=== PATIENT | male | born 1955 | race Caucasian/White ===

== ENCOUNTER 2016-06-28 08:59 | Emergency (ER) | payer BC, OTHER ==
[~2016-06-28] VITALS: Ht 170.2 cm; Wt 124.5 kg
[~2016-06-28 08:59] MED LIST: ASPIRIN E.C. 8181 MG PO; ATIVAN 0.50.5 MG/TAB PO; CALCIUM W/VITAM1 TAB PO; CIPRO 500MG TA500 MG PO; FLEXERIL; FLOMAX 0.40.4 MG/CAP PO; INDOCIN50 MG PO; LEXAPRO 10MG10 MG PO; LISINOPRIL10 MG PO; NEXIUM40 MG PO; NORCO 325 MG-51 TAB PO; NORCO 325 MG-7.1 TAB PO; NULEV0.125 M1 PO; PERCOCET 325 MG1 TA2 PO; PHENERGAN 25 TA25 MG PO; PHENERGAN25 MG RC; TOPAMAX50 MG PO; ZOFRAN 4MG T4 MG/TAB PO; ZOLOFT 25MG25 MG PO
[2016-06-28 09:03] VITALS: BP 159/79; PULSE 77; TEMP 98
[2016-06-28] MEDS ORDERED: MINIPRESS 1M1 MG/CAP PO (09:16)
[2016-06-28] MEDS ORDERED: EFFEXOR-XR150 MG PO (09:17)
[2016-06-28 09:44] LABS: INFLUENZA B NEGATIVE
[2016-06-28] MEDS ORDERED: NORCO 325 MG-51 TAB PO (10:39)
[2016-06-28] MEDS ORDERED: ZITHROMAX 250M250 MG PO (10:39)
== END 2016-06-28 10:48 | disposition home or self-care (01) ==
LOC: COL.ER 08:59
PROVIDERS: Emergency Medicine
DX: J06.9 Acute upper respiratory infection, unspecified (principal); K11.20 Sialoadenitis, unspecified; F17.210 Nicotine dependence, cigarettes, uncomplicated; I10 Essential (primary) hypertension

== ENCOUNTER → 2017-06-03 | Outpatient (CLI) | payer BC, OTHER ==
[~2017-06-03] MED LIST changes: +EFFEXOR-XR150 MG PO; +MINIPRESS 1M1 MG/CAP PO; +ZITHROMAX 250M250 MG PO
== END ==
LOC: ZCOL.LAB 16:06
DX: L02.419 Cutaneous abscess of limb, unspecified (principal)

== ENCOUNTER 2017-07-21 15:02 | Observation (INO) | payer BC, OTHER ==
[~2017-07-21] VITALS: Ht 170.3 cm; Wt 118.5 kg
[2017-07-21 15:24] LABS: BASO # 0.1 (0.0-0.2); BASO % 0.5 % (0.0-2.0); EOS # 0.2 (0.0-0.7); EOS % 1.4 % (0-4.0); GRAN # 12.9 (1.4-6.5); GRAN % 74.3 % (42.2-75.2); HEMATOCRIT 49.9 % (42.0-52.0); HEMOGLOBIN 17.4 g/dl (13.5-18.0); LYMPH # 2.7 (1.2-3.4); LYMPH % 15.5 % (20.0-51.0); MEAN CELL VOLUME 89 fl (80.0-100.0); MEAN CORPUSCULAR HEMOGLOBIN 31 pg (27.0-31.0); MEAN CORPUSCULAR HGB CONC 35 g/dl (33.0-37.0); MEAN PLATELET VOLUME 10.2 fl (7.4-10.4); MONO # 1.3 (0.1-0.6); MONO % 7.6 % (1.7-9.3); PLATELET COUNT 305 K/mm3 (130-400); RED BLOOD COUNT 5.61 M/mm3 (4.20-5.60); REDCELL DISTRIBUTION WIDTH-CV 12.4 % (11.5-14.5)
[2017-07-21] MEDS ORDERED: EFFEXOR-XR150 MG PO (15:30)
[2017-07-21 15:36] LABS: ALANINE AMINOTRANSFERASE 89 U/L (21-72); ALBUMIN 4.9 gm/dL (3.5-5.0); ALKALINE PHOSPHATASE 95 U/L (50-136); ANION GAP 12 mmol/L (7-16); AST,SGOT 53 U/L (15-37); BILIRUBIN,TOTAL 0.6 mg/dL (0.0-1.0); BLOOD UREA NITROGEN 19 mg/dL (9-20); CALCIUM 9.7 mg/dL (8.4-10.2); CARBON DIOXIDE 26 mmol/L (22-30); CHLORIDE 99 mmol/L (98-107); GLUCOSE 195 mg/dL (74-106); MAGNESIUM 2.1 mg/dL (1.6-2.3); POTASSIUM 4.4 mmol/L (3.4-5.0); SODIUM 137 mmol/L (137-145); TOTAL PROTEIN 8.1 gm/dL (6.4-8.2)
[2017-07-21 15:48] LABS: TROPONIN-I < 0.012 ng/mL (0.000-0.034)
[2017-07-21 15:49] LABS: PROTHROMBIN TIME 12.1 SECONDS (9.7-12.8)
[2017-07-21 15:52] LABS: PARTIAL THROMBOPLASTIN TIME 32.7 SECONDS (26.0-37.0)
[2017-07-21] MEDS ORDERED: MINIPRESS 5M5 MG/CAP PO (18:16)
[2017-07-21 18:30] VITALS: BP 129/65; PULSE 70; TEMP 98.1
[2017-07-21 20:52] VITALS: BP 126/65; PULSE 55; TEMP 98.8
[2017-07-22] VITALS (11 sets, daily range): BP systolic 121–156; BP diastolic 57–86; PULSE 59–91; TEMP 97.3–97.7
[2017-07-22 07:28] LABS: COLLECTION METHOD CLEAN CATCH
[2017-07-22 07:36] LABS: MUCOUS Present /lpf; PH 5 (5-8); SQUAMOUS EPITHELIAL None Seen /hpf; URINE APPEARANCE Clear; URINE BACTERIA None Seen /hpf; URINE BILIRUBIN Negative (NEGATIVE); URINE BLOOD Negative (NEGATIVE); URINE COLOR Yellow; URINE GLUCOSE Negative (NEGATIVE); URINE KETONE Negative (NEGATIVE); URINE LEUKOCYTE ESTERASE Negative (NEGATIVE); URINE NITRATE Negative (NEGATIVE); URINE PROTEIN(semi-quant) Negative (NEGATIVE); URINE RBC 0-2 /hpf; URINE UROBILINOGEN Negative (NEGATIVE)
[2017-07-22 07:55] LABS: BASO # 0.1 (0.0-0.2); BASO % 0.6 % (0.0-2.0); EOS # 0.2 (0.0-0.7); EOS % 1.4 % (0-4.0); GRAN # 10.6 (1.4-6.5); GRAN % 68.3 % (42.2-75.2); HEMATOCRIT 51.8 % (42.0-52.0); HEMOGLOBIN 17.3 g/dl (13.5-18.0); LYMPH # 3.4 (1.2-3.4); LYMPH % 21.6 % (20.0-51.0); MEAN CELL VOLUME 92 fl (80.0-100.0); MEAN CORPUSCULAR HEMOGLOBIN 31 pg (27.0-31.0); MEAN CORPUSCULAR HGB CONC 33 g/dl (33.0-37.0); MEAN PLATELET VOLUME 10.8 fl (7.4-10.4); MONO # 1.1 (0.1-0.6); MONO % 7.2 % (1.7-9.3); PLATELET COUNT 304 K/mm3 (130-400); RED BLOOD COUNT 5.64 M/mm3 (4.20-5.60); REDCELL DISTRIBUTION WIDTH-CV 12.8 % (11.5-14.5)
[2017-07-22 08:01] LABS: CALCIUM 9.5 mg/dL (8.4-10.2); CHOLESTEROL RISK RATIO 3.5; CREATININE, serum 0.94 mg/dL (0.66-1.25); POTASSIUM 4.2 mmol/L (3.4-5.0)
[2017-07-23] VITALS (7 sets, daily range): BP systolic 82–137; BP diastolic 40–65; PULSE 63–91; TEMP 97.4–98.7
[2017-07-23 06:14] LABS: BASO # 0.1 (0.0-0.2); BASO % 0.4 % (0.0-2.0); EOS # 0.2 (0.0-0.7); EOS % 1.6 % (0-4.0); GRAN # 8.1 (1.4-6.5); GRAN % 70.2 % (42.2-75.2); HEMOGLOBIN 15.7 g/dl (13.5-18.0); LYMPH # 2.3 (1.2-3.4); LYMPH % 19.6 % (20.0-51.0); MEAN CELL VOLUME 89 fl (80.0-100.0); MEAN CORPUSCULAR HEMOGLOBIN 31 pg (27.0-31.0); MEAN CORPUSCULAR HGB CONC 35 g/dl (33.0-37.0); MEAN PLATELET VOLUME 10.4 fl (7.4-10.4); MONO # 0.9 (0.1-0.6); MONO % 7.7 % (1.7-9.3); PLATELET COUNT 210 K/mm3 (130-400); RED BLOOD COUNT 5.06 M/mm3 (4.20-5.60); REDCELL DISTRIBUTION WIDTH-CV 12.3 % (11.5-14.5)
[2017-07-23 06:27] LABS: CALCIUM 8.9 mg/dL (8.4-10.2); CREATININE, serum 0.87 mg/dL (0.66-1.25); POTASSIUM 4.1 mmol/L (3.4-5.0)
[2017-07-23] MEDS ORDERED: MINIPRESS 5M5 MG/CAP PO ×2 (11:03→15:41)
[2017-07-23] MEDS ORDERED: TOPROL XL 25MG25 MG PO (11:05)
[2017-07-23] MEDS ORDERED: GLUCOPHAGE500 MG/TAB PO (13:07)
== END 2017-07-23 15:30 | disposition home or self-care (01) ==
LOC: COL.ER 15:02 → MEDICAL 16:47
PROVIDERS: Emergency Medicine; Nurse Practitioner; Physician Assistant
DX: R07.89 Other chest pain (principal); R00.2 Palpitations; D72.829 Elevated white blood cell count, unspecified; R74.0 Nonspecific elevation of levels of transaminase and lactic acid dehydrogenase [LDH]; I10 Essential (primary) hypertension; E11.9 Type 2 diabetes mellitus without complications; F43.10 Post-traumatic stress disorder, unspecified; G47.33 Obstructive sleep apnea (adult) (pediatric); E66.9 Obesity, unspecified; I25.2 Old myocardial infarction; Z88.0 Allergy status to penicillin; Z79.4 Long term (current) use of insulin; Z98.52 Vasectomy status; Z87.891 Personal history of nicotine dependence
CPT/HCPCS: A9502; G0378; J1650; J1815; J2785; J7030

== ENCOUNTER → 2017-07-26 | Outpatient (CLI) | payer BC, OTHER ==
[~2017-07-26] MED LIST changes: +GLUCOPHAGE500 MG/TAB PO; +MINIPRESS 5M5 MG/CAP PO; +TOPROL XL 25MG25 MG PO
[2017-07-26 08:23] LABS: ALBUMIN 4.3 gm/dL (3.5-5.0); BILIRUBIN,TOTAL 0.6 mg/dL (0.0-1.0); CALCIUM 9.1 mg/dL (8.4-10.2); CREATININE, serum 0.94 mg/dL (0.66-1.25); POTASSIUM 4.4 mmol/L (3.4-5.0); TOTAL PROTEIN 7.2 gm/dL (6.4-8.2)
== END ==
LOC: COL.LAB 07:49
PROVIDERS: Physician Assistant
DX: E11.9 Type 2 diabetes mellitus without complications (principal)

== ENCOUNTER 2017-09-30 08:30 | Day surgery (SDC) | payer BC, OTHER ==
[2017-09-30] VITALS (423 sets, daily range): BP systolic 116–155; BP diastolic 65–85; PULSE 55–75; TEMP 79.6–98.4; O2SAT 88–100
[~2017-09-30] VITALS: Ht 170.5 cm; Wt 123.6 kg
[~2017-09-30 08:30] MED LIST changes: -LISINOPRIL10 MG PO; +NEXIUM 40MG40 MG PO; -NEXIUM40 MG PO; +ZESTRIL 10MG10 MG PO
[2017-09-30 08:52] LABS: HEMATOCRIT 42.7 % (42.0-52.0); HEMOGLOBIN 14.8 g/dl (13.5-18.0); MEAN CELL VOLUME 90 fl (80.0-100.0); MEAN CORPUSCULAR HEMOGLOBIN 31 pg (27.0-31.0); MEAN CORPUSCULAR HGB CONC 35 g/dl (33.0-37.0); MEAN PLATELET VOLUME 10.2 fl (7.4-10.4); PLATELET COUNT 206 K/mm3 (130-400); RED BLOOD COUNT 4.77 M/mm3 (4.20-5.60); REDCELL DISTRIBUTION WIDTH-CV 12.1 % (11.5-14.5)
[2017-09-30 09:02] LABS: INR 1.1 (0.8-3.0)
[2017-09-30 09:04] LABS: CREATININE, serum 0.8 mg/dL (0.66-1.25); POTASSIUM 4.5 mmol/L (3.4-5.0)
[2017-09-30] MEDS ORDERED: VITAMIN D 1001000 IU PO (09:40)
[2017-09-30] MEDS ORDERED: ATIVAN 1MG T1 MG/TAB PO (09:41)
[2017-10-01] VITALS (478 sets, daily range): BP systolic 105–130; BP diastolic 75–84; PULSE 63–115; TEMP 97–98.4; O2SAT 86–100
[2017-10-01 03:50] LABS: BASO # 0.1 (0.0-0.2); BASO % 0.7 % (0.0-2.0); EOS # 0.3 (0.0-0.7); EOS % 2.9 % (0-4.0); GRAN # 5.8 (1.4-6.5); GRAN % 66.4 % (42.2-75.2); HEMATOCRIT 40.9 % (42.0-52.0); HEMOGLOBIN 14.3 g/dl (13.5-18.0); LYMPH % 22.5 % (20.0-51.0); MEAN CELL VOLUME 88 fl (80.0-100.0); MEAN CORPUSCULAR HEMOGLOBIN 31 pg (27.0-31.0); MEAN CORPUSCULAR HGB CONC 35 g/dl (33.0-37.0); MEAN PLATELET VOLUME 10.2 fl (7.4-10.4); MONO # 0.6 (0.1-0.6); MONO % 7.2 % (1.7-9.3); PLATELET COUNT 188 K/mm3 (130-400); RED BLOOD COUNT 4.63 M/mm3 (4.20-5.60); REDCELL DISTRIBUTION WIDTH-CV 12.1 % (11.5-14.5)
[2017-10-01 04:00] LABS: CALCIUM 8.7 mg/dL (8.4-10.2); CREATININE, serum 0.75 mg/dL (0.66-1.25)
[2017-10-01] MEDS ORDERED: BRILINTA90 MG PO (12:15)
[2017-10-01] MEDS ORDERED: LIPITOR 80MG80 MG PO (12:15)
[2017-10-01] MEDS ORDERED: TOPROL XL 50MG50 MG PO (12:16)
[2017-10-01] MEDS ORDERED: ZESTRIL 10MG10 MG PO (12:16)
[2017-10-01] MEDS ORDERED: ASPIRIN E.C. 8181 MG PO (12:17)
[2017-10-01] MEDS ORDERED: GLUCOPHAGE500 MG/TAB PO (12:18)
== END 2017-10-01 12:59 | disposition home or self-care (01) ==
LOC: COL.CAR 08:30 → ICU 11:45 → COL.CAR 10-01 12:59
PROVIDERS: Internal Medicine Cardiovascular Disease; Nurse Practitioner
DX: I25.10 Atherosclerotic heart disease of native coronary artery without angina pectoris (principal); I42.9 Cardiomyopathy, unspecified; I49.3 Ventricular premature depolarization; I10 Essential (primary) hypertension; E66.9 Obesity, unspecified; E11.9 Type 2 diabetes mellitus without complications; K21.9 Gastro-esophageal reflux disease without esophagitis; F43.10 Post-traumatic stress disorder, unspecified; G47.33 Obstructive sleep apnea (adult) (pediatric); F41.9 Anxiety disorder, unspecified; R51 Headache; Z88.0 Allergy status to penicillin; Z82.49 Family history of ischemic heart disease and other diseases of the circulatory system; Z85.828 Personal history of other malignant neoplasm of skin; Z80.3 Family history of malignant neoplasm of breast
CPT/HCPCS: OP; C1760; C1769; C1874; C1887; C1894; C9600; J0153; J0583; J2250; J3010; Q9967

== ENCOUNTER → 2018-03-02 | Outpatient (CLI) | payer BC, OTHER ==
[~2018-03-02] MED LIST changes: +ATIVAN 1MG T1 MG/TAB PO; +BRILINTA90 MG PO; +LIPITOR 80MG80 MG PO; +TOPROL XL 50MG50 MG PO; +VITAMIN D 1001000 IU PO
== END ==
LOC: COL.VAS 10:00
DX: I07.1 Rheumatic tricuspid insufficiency (principal)

== ENCOUNTER → 2018-03-07 | Outpatient (CLI) | payer BC, OTHER | LOC: COL.RAD 09:53 | DX: R06.02 Shortness of breath (principal) ==

== ENCOUNTER → 2018-07-05 | Outpatient (CLI) | payer BC, OTHER | LOC: COL.CARD 09:26 | DX: R40.4 Transient alteration of awareness (principal); R44.3 Hallucinations, unspecified ==

== ENCOUNTER 2018-07-30 20:15 | Emergency (ER) | payer BC, OTHER ==
[~2018-07-30] VITALS: Ht 170.2 cm; Wt 121.0 kg
[2018-07-30 20:29] VITALS: BP 107/68; TEMP 98.4
[2018-07-30 22:47] LABS: COLLECTION METHOD CLEAN CATCH
[2018-07-30 22:51] LABS: BASO # 0.1 (0.0-0.2); BASO % 0.7 % (0.0-2.0); EOS # 0.4 (0.0-0.7); EOS % 3.2 % (0-4.0); GRAN # 7.5 (1.4-6.5); HEMATOCRIT 44.1 % (42.0-52.0); HEMOGLOBIN 15.2 g/dl (13.5-18.0); LYMPH # 2.8 (1.2-3.4); MEAN CELL VOLUME 89 fl (80.0-100.0); MEAN CORPUSCULAR HEMOGLOBIN 31 pg (27.0-31.0); MEAN CORPUSCULAR HGB CONC 35 g/dl (33.0-37.0); MEAN PLATELET VOLUME 10.2 fl (7.4-10.4); MONO # 0.9 (0.1-0.6); MONO % 7.6 % (1.7-9.3); PLATELET COUNT 252 K/mm3 (130-400); RED BLOOD COUNT 4.96 M/mm3 (4.20-5.60); REDCELL DISTRIBUTION WIDTH-CV 12.4 % (11.5-14.5)
[2018-07-30 23:03] LABS: MUCOUS Present /lpf; PH 5 (5-8); SQUAMOUS EPITHELIAL 0-2 /hpf; URINE APPEARANCE Clear; URINE BACTERIA None Seen /hpf; URINE BILIRUBIN Negative (NEGATIVE); URINE BLOOD 3+ (NEGATIVE); URINE COLOR Yellow; URINE GLUCOSE Negative (NEGATIVE); URINE KETONE Negative (NEGATIVE); URINE LEUKOCYTE ESTERASE Negative (NEGATIVE); URINE NITRATE Negative (NEGATIVE); URINE PROTEIN(semi-quant) Negative (NEGATIVE); URINE RBC >50 /hpf; URINE UROBILINOGEN >=4.0 mg/dL (NEGATIVE)
[2018-07-30 23:04] LABS: ALBUMIN 4.3 gm/dL (3.5-5.0); BILIRUBIN,TOTAL 0.5 mg/dL (0.0-1.0); CALCIUM 9.5 mg/dL (8.4-10.2); CREATININE, serum 0.77 mg/dL (0.66-1.25); POTASSIUM 4.3 mmol/L (3.4-5.0); TOTAL PROTEIN 7.4 gm/dL (6.4-8.2)
[2018-07-31] MEDS ORDERED: FLOMAX 0.40.4 MG/CAP PO (03:37)
[2018-07-31] MEDS ORDERED: PERCOCET 325 MG1 TA2 PO (03:37)
[2018-07-31 04:02] VITALS: PULSE 65
== END 2018-07-31 04:13 | disposition home or self-care (01) ==
LOC: COL.ER 20:15
PROVIDERS: Emergency Medicine
DX: N20.2 Calculus of kidney with calculus of ureter (principal); I25.10 Atherosclerotic heart disease of native coronary artery without angina pectoris; E66.9 Obesity, unspecified; Z87.442 Personal history of urinary calculi; Z87.19 Personal history of other diseases of the digestive system; Z79.82 Long term (current) use of aspirin; Z79.84 Long term (current) use of oral hypoglycemic drugs; Z87.891 Personal history of nicotine dependence; Z95.5 Presence of coronary angioplasty implant and graft; Z88.0 Allergy status to penicillin
CPT/HCPCS: J2270; J2405; J7030; Q9967

== ENCOUNTER 2018-08-01 23:11 | Emergency (ER) | payer BC, OTHER ==
[~2018-08-01] VITALS: Ht 170.2 cm; Wt 121.0 kg
[2018-08-01 23:15] VITALS: TEMP 97.9
[2018-08-02 00:22] LABS: COLLECTION METHOD CLEAN CATCH
[2018-08-02 00:24] LABS: BASO # 0.1 (0.0-0.2); BASO % 0.5 % (0.0-2.0); EOS # 0.2 (0.0-0.7); EOS % 1.5 % (0-4.0); GRAN # 12.4 (1.4-6.5); GRAN % 81.8 % (42.2-75.2); HEMATOCRIT 43.4 % (42.0-52.0); HEMOGLOBIN 14.7 g/dl (13.5-18.0); LYMPH # 1.5 (1.2-3.4); LYMPH % 9.7 % (20.0-51.0); MEAN CELL VOLUME 90 fl (80.0-100.0); MEAN CORPUSCULAR HEMOGLOBIN 31 pg (27.0-31.0); MEAN CORPUSCULAR HGB CONC 34 g/dl (33.0-37.0); MONO # 0.9 (0.1-0.6); PLATELET COUNT 211 K/mm3 (130-400); RED BLOOD COUNT 4.82 M/mm3 (4.20-5.60); REDCELL DISTRIBUTION WIDTH-CV 12.1 % (11.5-14.5)
[2018-08-02 00:35] LABS: ALBUMIN 4.4 gm/dL (3.5-5.0); BILIRUBIN,TOTAL 0.3 mg/dL (0.0-1.0); CALCIUM 9.4 mg/dL (8.4-10.2); CREATININE, serum 0.89 mg/dL (0.66-1.25); POTASSIUM 4.5 mmol/L (3.4-5.0); TOTAL PROTEIN 7.7 gm/dL (6.4-8.2)
[2018-08-02 00:47] LABS: HYALINE CAST >12 /lpf; MUCOUS Present /lpf; PH 5 (5-8); SQUAMOUS EPITHELIAL 0-2 /hpf; URINE APPEARANCE Cloudy; URINE BACTERIA Rare /hpf; URINE BILIRUBIN Negative (NEGATIVE); URINE BLOOD 3+ (NEGATIVE); URINE CALCIUM OXALATE CRYSTAL Present /hpf; URINE COLOR Yellow; URINE GLUCOSE Negative (NEGATIVE); URINE KETONE Negative (NEGATIVE); URINE LEUKOCYTE ESTERASE Negative (NEGATIVE); URINE NITRATE Negative (NEGATIVE); URINE PROTEIN(semi-quant) 1+ (NEGATIVE); URINE RBC >50 /hpf
[2018-08-02] MEDS ORDERED: PERIACTIN 4MG TA4 MG PO (00:48)
[2018-08-02] MEDS ORDERED: NEURONTIN100 MG/CAP PO (00:49)
[2018-08-02] MEDS ORDERED: IMDUR 30MG30 MG/TAB PO (00:56)
[2018-08-02] MEDS ORDERED: TOPROL XL 50MG50 MG PO (00:58)
[2018-08-02] MEDS ORDERED: NITROSTAT0.4 MG/TAB SL (00:59)
[2018-08-02] MEDS ORDERED: THEO-24 30300 MG/CAP PO (01:00)
[2018-08-02] MEDS ORDERED: ZOFRAN 4MG T4 MG/TAB PO (02:10)
[2018-08-02] MEDS ORDERED: KENALOG-4040 MG/VIAL IM (02:10)
[2018-08-02] MEDS ORDERED: OMNICEF 300MG300 MG PO (03:09)
[2018-08-02 03:50] VITALS: BP 103/84; PULSE 67
== END 2018-08-02 03:50 | disposition home or self-care (01) ==
LOC: COL.ER 23:11
PROVIDERS: Emergency Medicine
DX: R39.89 Other symptoms and signs involving the genitourinary system (principal); I10 Essential (primary) hypertension; G47.33 Obstructive sleep apnea (adult) (pediatric); F43.10 Post-traumatic stress disorder, unspecified; Z79.82 Long term (current) use of aspirin; Z79.4 Long term (current) use of insulin; Z79.51 Long term (current) use of inhaled steroids; Z98.890 Other specified postprocedural states; Z90.89 Acquired absence of other organs
CPT/HCPCS: A4216; J0696; J1885; J2270; J2405; J7030; Q9967

== ENCOUNTER 2018-08-05 10:06 | Day surgery (SDC) | payer BC, OTHER ==
[~2018-08-05] VITALS: Ht 170.2 cm; Wt 120.6 kg
[~2018-08-05 10:06] MED LIST changes: +IMDUR 30MG30 MG/TAB PO; +KENALOG-4040 MG/VIAL IM; +NEURONTIN100 MG/CAP PO; +NITROSTAT0.4 MG/TAB SL; +OMNICEF 300MG300 MG PO; +PERIACTIN 4MG TA4 MG PO; +THEO-24 30300 MG/CAP PO
[2018-08-05 10:45] VITALS: BP 118/61; PULSE 62; TEMP 98.2
[2018-08-05 13:30] VITALS: BP 122/72; PULSE 55; TEMP 97.4
--- NOTE | 2018-08-05 13:30 | NUR ---
TO RM 8 PER CART FROM PACU. ALERT ORIENTED X3, TALKING TO STAFF AND HIS . DENIES PAIN OR DISCOMFORT, DENIES NAUSEA OR VOMITING.
[2018-08-05 13:45] VITALS: BP 121/76; PULSE 53
--- NOTE | 2018-08-05 13:45 | NUR ---
RECEIVED WATER AND MUFFIN.
[2018-08-05 14:00] VITALS: BP 126/75; PULSE 51
--- NOTE | 2018-08-05 14:00 | NUR ---
ATE 100% AND TOLERATED WELL. RECEIVED MARICHUY. PUDDING. SITTING AT BEDSIDE.
--- NOTE | 2018-08-05 14:10 | NUR ---
UP AMBULATED TO BATHROOM AND VOIDED. PATIENT STATED HE SEEN BLOOD NOTED IN URINE.
--- NOTE | 2018-08-05 14:15 | NUR ---
RECEIVED DISCHARGE INSTRUCTIONS AND VERBALIZED UNDERSTANDING. DISCONTINUED IV AND INT-CATHETER INTACT.
--- NOTE | 2018-08-05 14:20 | NUR ---
DISCHARGED PER WC BY NURSING STAFF TO PRIVATE CAR IN CARE OF - ANNIKA
== END 2018-08-05 14:20 | disposition home or self-care (01) ==
LOC: SDCO 10:06
DX: R10.9 Unspecified abdominal pain (principal); R31.9 Hematuria, unspecified; R39.12 Poor urinary stream; I10 Essential (primary) hypertension; E11.40 Type 2 diabetes mellitus with diabetic neuropathy, unspecified; Z79.84 Long term (current) use of oral hypoglycemic drugs; Z87.442 Personal history of urinary calculi; Z95.5 Presence of coronary angioplasty implant and graft; R20.2 Paresthesia of skin; F43.10 Post-traumatic stress disorder, unspecified; Z80.42 Family history of malignant neoplasm of prostate; Z79.899 Other long term (current) drug therapy; Z79.82 Long term (current) use of aspirin; I25.10 Atherosclerotic heart disease of native coronary artery without angina pectoris; Z82.49 Family history of ischemic heart disease and other diseases of the circulatory system; I07.1 Rheumatic tricuspid insufficiency; G47.33 Obstructive sleep apnea (adult) (pediatric); Z85.828 Personal history of other malignant neoplasm of skin; F41.9 Anxiety disorder, unspecified; K21.9 Gastro-esophageal reflux disease without esophagitis; K44.9 Diaphragmatic hernia without obstruction or gangrene; J98.4 Other disorders of lung; K76.0 Fatty (change of) liver, not elsewhere classified; Z87.891 Personal history of nicotine dependence; Z88.0 Allergy status to penicillin
CPT/HCPCS: C1769; J0690; J2250; J2405; J2704; J3010; J7030; Q9967

== ENCOUNTER 2018-09-26 12:13 | Emergency (ER) | payer BC, OTHER ==
[~2018-09-26] VITALS: Ht 170.2 cm; Wt 121.9 kg
[2018-09-26 12:18] VITALS: TEMP 97
[2018-09-26 12:57] LABS: BASO % 0.5 % (0.0-2.0); EOS # 0.3 (0.0-0.7); EOS % 4.1 % (0-4.0); GRAN # 5.5 (1.4-6.5); GRAN % 65.4 % (42.2-75.2); HEMATOCRIT 40.7 % (42.0-52.0); HEMOGLOBIN 13.8 g/dl (13.5-18.0); LYMPH # 1.9 (1.2-3.4); LYMPH % 22.3 % (20.0-51.0); MEAN CELL VOLUME 89 fl (80.0-100.0); MEAN CORPUSCULAR HEMOGLOBIN 30 pg (27.0-31.0); MEAN CORPUSCULAR HGB CONC 34 g/dl (33.0-37.0); MEAN PLATELET VOLUME 10.2 fl (7.4-10.4); MONO # 0.6 (0.1-0.6); MONO % 7.2 % (1.7-9.3); PLATELET COUNT 201 K/mm3 (130-400); RED BLOOD COUNT 4.59 M/mm3 (4.20-5.60); REDCELL DISTRIBUTION WIDTH-CV 12.4 % (11.5-14.5)
[2018-09-26 12:59] LABS: INR 1.2 (0.8-3.0); PROTHROMBIN TIME 13.2 SECONDS (9.7-12.8)
[2018-09-26 13:02] LABS: ALANINE AMINOTRANSFERASE 16 U/L (21-72); ALBUMIN 3.9 gm/dL (3.5-5.0); ALKALINE PHOSPHATASE 82 U/L (50-136); ANION GAP 13 mmol/L (7-16); AST,SGOT 38 U/L (15-37); BILIRUBIN,TOTAL 0.5 mg/dL (0.0-1.0); BLOOD UREA NITROGEN 11 mg/dL (9-20); CALCIUM 9.4 mg/dL (8.4-10.2); CARBON DIOXIDE 23 mmol/L (22-30); CHLORIDE 107 mmol/L (98-107); CREATININE, serum 0.85 (0.66-1.25); GLUCOSE 236 mg/dL (74-106); LIPASE 113 U/L (23-300); POTASSIUM 3.6 mmol/L (3.4-5.0); SODIUM 143 mmol/L (137-145); TOTAL PROTEIN 6.9 gm/dL (6.4-8.2)
[2018-09-26 13:14] LABS: TROPONIN-I < 0.012 ng/mL (0.000-0.035)
[2018-09-26 17:10] VITALS: BP 92/60; PULSE 73
== END 2018-09-26 17:18 | disposition home or self-care (01) ==
LOC: COL.ER 12:13
PROVIDERS: Emergency Medicine
DX: R07.89 Other chest pain (principal); I25.10 Atherosclerotic heart disease of native coronary artery without angina pectoris; Z95.5 Presence of coronary angioplasty implant and graft
CPT/HCPCS: J1885; J2060; J2270; J2405; J3010; J7030; Q9967

== ENCOUNTER 2018-11-18 06:59 | Day surgery (SDC) | payer BC, OTHER ==
[~2018-11-18] VITALS: Ht 170.2 cm; Wt 120.8 kg
[2018-11-18] VITALS (12 sets, daily range): BP systolic 96–122; BP diastolic 64–77; PULSE 54–81; TEMP 97.6
[2018-11-18 07:43] LABS: HEMATOCRIT 41.4 % (42.0-52.0); HEMOGLOBIN 13.8 g/dl (13.5-18.0); MEAN CELL VOLUME 91 fl (80.0-100.0); MEAN CORPUSCULAR HEMOGLOBIN 30 pg (27.0-31.0); MEAN CORPUSCULAR HGB CONC 33 g/dl (33.0-37.0); MEAN PLATELET VOLUME 10.3 fl (7.4-10.4); PLATELET COUNT 189 K/mm3 (130-400); RED BLOOD COUNT 4.57 M/mm3 (4.20-5.60); REDCELL DISTRIBUTION WIDTH-CV 12.7 % (11.5-14.5)
[2018-11-18 07:54] LABS: CALCIUM 8.9 mg/dL (8.4-10.2); CREATININE, serum 0.98 (0.66-1.25); POTASSIUM 4.3 mmol/L (3.4-5.0)
[2018-11-18 08:02] LABS: INR 1.1 (0.8-3.0); PROTHROMBIN TIME 12.3 SECONDS (9.7-12.8)
[2018-11-18] MEDS ORDERED: ASPIRIN E.C. 8181 MG PO (08:35)
[2018-11-18] MEDS ORDERED: LIPITOR 80MG80 MG PO (08:36)
[2018-11-18] MEDS ORDERED: BRILINTA90 MG PO (08:42)
[2018-11-18] MEDS ORDERED: MINIPRESS 5M5 MG/CAP PO (08:43)
[2018-11-18] MEDS ORDERED: TOPROL XL 50MG50 MG PO (08:45)
[2018-11-18] MEDS ORDERED: GLUCOPHAGE500 MG/TAB PO (08:46)
[2018-11-18] MEDS ORDERED: PROAIR HFA0.09 MG/AC IH (08:48)
[2018-11-18] MEDS ORDERED: FLOMAX 0.40.4 MG/CAP PO (08:48)
[2018-11-18] MEDS ORDERED: ZESTRIL 10MG10 MG PO (08:50)
--- NOTE | 2018-11-18 08:57 | NUR ---
SEE MERGE REPORTS FOR MEDICATION ADMINISTRATION TIMES AND INTRA/POST PROCEDURE SEDATION ASSESSMENTS.
--- NOTE | 2018-11-18 13:25 | NUR ---
recieved report for Audra ABRAHAM, pt has no c/o, has old scan drainage on corner of 2x2, marked, pt used urinal earlier, call light in reach
--- NOTE | 2018-11-18 14:00 | NUR ---
pt sat on side of bed, tolerated well, walked in taylor and used b/r. site to groin remains the same, IV d'cd. Reviewed discharge inst. with pt on activity, precautions, appt made, and no new meds ordered, pt with verbal understanding. pt up in room dressed, waits for /ride
--- NOTE | 2018-11-18 14:45 | NUR ---
pt discharged via w/c to car with
== END 2018-11-18 14:45 | disposition home or self-care (01) ==
LOC: COL.CAR 06:59
PROVIDERS: Internal Medicine Cardiovascular Disease
DX: I25.10 Atherosclerotic heart disease of native coronary artery without angina pectoris (principal); I27.20 Pulmonary hypertension, unspecified; E11.9 Type 2 diabetes mellitus without complications; E66.9 Obesity, unspecified; K21.9 Gastro-esophageal reflux disease without esophagitis; I49.3 Ventricular premature depolarization; F43.10 Post-traumatic stress disorder, unspecified; G47.33 Obstructive sleep apnea (adult) (pediatric); J98.4 Other disorders of lung; F41.9 Anxiety disorder, unspecified; R51 Headache; Z82.49 Family history of ischemic heart disease and other diseases of the circulatory system; Z85.828 Personal history of other malignant neoplasm of skin; I10 Essential (primary) hypertension; Z87.442 Personal history of urinary calculi; D72.829 Elevated white blood cell count, unspecified; E29.1 Testicular hypofunction; Z79.82 Long term (current) use of aspirin; Z79.84 Long term (current) use of oral hypoglycemic drugs; Z87.891 Personal history of nicotine dependence; Z80.9 Family history of malignant neoplasm, unspecified; Z80.3 Family history of malignant neoplasm of breast; Z88.0 Allergy status to penicillin
CPT/HCPCS: C1760; C1769; C1894; J1644; J2250; J3010; Q9967

== ENCOUNTER → 2018-12-13 | Outpatient (CLI) | payer BC, OTHER ==
[~2018-12-13] MED LIST changes: +PROAIR HFA0.09 MG/AC IH
== END ==
LOC: COL.RAD 08:09
DX: M51.16 Intervertebral disc disorders with radiculopathy, lumbar region (principal); M48.07 Spinal stenosis, lumbosacral region

== ENCOUNTER 2020-01-27 09:54 | Emergency (ER) | payer BC, OTHER ==
[~2020-01-27] VITALS: Ht 170.2 cm; Wt 120.7 kg
[2020-01-27 10:04] VITALS: BP 116/74; TEMP 97.7
[2020-01-27 12:44] VITALS: PULSE 88
[2020-01-27] MEDS ORDERED: CLEOCIN HCL300 MG PO (13:01)
== END 2020-01-27 12:44 | disposition home or self-care (01) ==
LOC: COL.ER 09:54
DX: M96.89 Other intraoperative and postprocedural complications and disorders of the musculoskeletal system (principal); Z88.0 Allergy status to penicillin; Z79.82 Long term (current) use of aspirin; Z79.84 Long term (current) use of oral hypoglycemic drugs

== ENCOUNTER 2020-02-22 20:55 | Observation (INO) | payer MEDICARE, BC, OTHER ==
[~2020-02-22] VITALS: Ht 170.2 cm; Wt 116.4 kg
[2020-02-22] VITALS (130 sets, daily range): BP systolic 146; BP diastolic 73; PULSE 70; TEMP 97.9; O2SAT 93–100
[~2020-02-22 20:55] MED LIST changes: +CLEOCIN HCL300 MG PO
--- NOTE | 2020-02-22 21:26 | NUR ---
Received report from LEIGH Lovelace.
[2020-02-22] MEDS ORDERED: THEO-DUR 3300 MG/TAB PO (21:29)
[2020-02-22] MEDS ORDERED: BEVESPI AEROS10.7 GM IH (21:29)
[2020-02-22] MEDS ORDERED: ATIVAN 1MG T1 MG/TAB PO (21:29)
--- NOTE | 2020-02-22 21:29 | NUR ---
Patient arrives to ICU room 1 via EMS stretcher. Patient ambulated with standby assistance to the ICU bed. Initial vitals within normal limits. Patient is A&Ox4, reporting 1/10 chest discomfort, related to episodes of PVCs; described as light chest pressure. Patient arrives with heparin infusing to a peripheral IV in the LAC at 1000 units/hour or 10 mL/hr. Shania notified of patient's arrival. Will continue to monitor.
[2020-02-22] MEDS ORDERED: MINIPRESS 1M1 MG/CAP PO (21:30)
[2020-02-22] MEDS ORDERED: LOPRESSOR 550 MG/TAB PO ×2 (22:05)
[2020-02-22] MEDS ORDERED: IMDUR 30MG30 MG/TAB PO (22:07)
[2020-02-22] MEDS ORDERED: GLUCOPHAGE500 MG/TAB PO (22:08)
[2020-02-22] MEDS ORDERED: KEPPRA250 MG PO (22:10)
[2020-02-22] MEDS ORDERED: AMITRIPTYLINE H25 M1 PO (22:11)
[2020-02-22] MEDS ORDERED: EFFEXOR-XR150 MG PO (22:12)
[2020-02-22] MEDS ORDERED: ABILIFY 10MG TA10 MG PO (22:14)
[2020-02-22] MEDS ORDERED: BASAGLAR K100 UNIT/1 SQ (22:15)
[2020-02-22 22:31] LABS: TROPONIN-I < 0.012 ng/mL (0.000-0.035)
[2020-02-22 22:44] LABS: MAGNESIUM 1.7 mg/dL (1.6-2.3)
[2020-02-22 23:16] LABS: TSH w REFLEX 1.52 uIU/mL (0.465-4.680)
[2020-02-22 23:23] LABS: INR 1.1 (0.8-3.0); PROTHROMBIN TIME 12.8 SECONDS (9.7-12.8)
[2020-02-22 23:30] LABS: PARTIAL THROMBOPLASTIN TIME 103.2 SECONDS (26.0-37.0)
--- NOTE | 2020-02-22 23:35 | NUR ---
Notified Shania of patient's PTT and HepXa. To continue heparin drip at the 1000 units/hour until HepXa draw at 0330. To dose according to low-dose protocol following that draw.
[2020-02-23] VITALS (1002 sets, daily range): BP systolic 87–1108; BP diastolic 48–84; PULSE 51–75; TEMP 97.5–98.2; O2SAT 88–100
[2020-02-23 03:41] LABS: BASO # 0.1 (0.0-0.2); BASO % 0.5 % (0.0-2.0); EOS # 0.5 (0.0-0.7); EOS % 4.9 % (0-4.0); GRAN # 6.2 (1.4-6.5); GRAN % 60.6 % (42.2-75.2); HEMATOCRIT 38.8 % (42.0-52.0); HEMOGLOBIN 12.9 g/dl (13.5-18.0); LYMPH # 2.7 (1.2-3.4); LYMPH % 26.7 % (20.0-51.0); MEAN CELL VOLUME 90 fl (80.0-100.0); MEAN CORPUSCULAR HEMOGLOBIN 30 pg (27.0-31.0); MEAN CORPUSCULAR HGB CONC 33 g/dl (33.0-37.0); MONO # 0.7 (0.1-0.6); MONO % 6.8 % (1.7-9.3); PLATELET COUNT 196 K/mm3 (130-400); REDCELL DISTRIBUTION WIDTH-CV 12.1 % (11.5-14.5)
[2020-02-23 03:53] LABS: ALANINE AMINOTRANSFERASE 23 U/L (4-49); ALBUMIN 3.6 gm/dL (3.5-5.0); ALKALINE PHOSPHATASE 93 U/L (50-136); ANION GAP 7 mmol/L (7-16); AST,SGOT 21 U/L (15-37); BILIRUBIN,TOTAL 0.4 mg/dL (0.0-1.0); BLOOD UREA NITROGEN 15 mg/dL (9-20); CALCIUM 8.7 mg/dL (8.4-10.2); CARBON DIOXIDE 28 mmol/L (22-30); CHLORIDE 103 mmol/L (98-107); CHOLESTEROL 80 mg/dL (120-200); CHOLESTEROL RISK RATIO 2.1; CREATININE, serum 0.82 (0.66-1.25); GLUCOSE 139 mg/dL (74-106); HDL CHOLESTEROL 38 mg/dL; LDL CHOLESTEROL 22 mg/dL; SODIUM 137 mmol/L (137-145); TOTAL PROTEIN 6.3 gm/dL (6.4-8.2); TRIGLYCERIDE 100 mg/dL
[2020-02-23 04:05] LABS: TROPONIN-I < 0.012 ng/mL (0.000-0.035)
--- NOTE | 2020-02-23 11:47 | NUR ---
SEE MI FOR ALL MEDICATION ADMIN TIMES, INTRA AND POST SEDATION ASSESSMENT
--- NOTE | 2020-02-23 15:06 | NUR ---
Bag Inspector met with patient to discuss discharge planning. Patient lives in [place] with his , Yashira (ph#[phone]) and sees Dr. Rm for primary care. Patient obtains medications from [facility] and does not use any DME. Patient states he has DPO[employer]-HC which designates his , Yashira. Patient is normally independent with ADLS and plans to return home upon discharge. No needs identified at this time.
[2020-02-23] MEDS ORDERED: LOVAZA1 GM PO (17:26)
[2020-02-23] MEDS ORDERED: LOPRESSOR 550 MG/TAB PO (17:26)
--- NOTE | 2020-02-23 18:16 | NUR ---
Discontinued patients Left AC peripheral IV d/t discharge. No redness, warmth or swelling noted. Catheter was intact. Removed at 1815 on 02/22. Patient tolerated well. Placed gauze and wrapped with coban over insertion site.
--- NOTE | 2020-02-23 19:00 | NUR ---
Discharge instructions reviewed. Education packet sent with patient. Patient accepting of education. Patient left facility with spouse.
== END 2020-02-23 19:15 | disposition home or self-care (01) ==
LOC: ICU 20:55
PROVIDERS: Nurse Practitioner Family; ADMIT Internal Medicine
DX: R07.89 Other chest pain (principal); I25.10 Atherosclerotic heart disease of native coronary artery without angina pectoris; Z95.5 Presence of coronary angioplasty implant and graft; I10 Essential (primary) hypertension; E78.5 Hyperlipidemia, unspecified; E11.42 Type 2 diabetes mellitus with diabetic polyneuropathy; G47.33 Obstructive sleep apnea (adult) (pediatric); J44.9 Chronic obstructive pulmonary disease, unspecified; F41.9 Anxiety disorder, unspecified; F32.9 Major depressive disorder, single episode, unspecified; F43.10 Post-traumatic stress disorder, unspecified; K21.9 Gastro-esophageal reflux disease without esophagitis; E66.9 Obesity, unspecified; Z88.0 Allergy status to penicillin; Z79.82 Long term (current) use of aspirin; Z79.84 Long term (current) use of oral hypoglycemic drugs; Z98.52 Vasectomy status; Z87.891 Personal history of nicotine dependence
CPT/HCPCS: G0378; G0379; J1644; J3010; J3475; J7030

== ENCOUNTER → 2020-07-23 | Outpatient (CLI) | payer MEDICARE, BC, OTHER ==
[~2020-07-23] MED LIST changes: +ABILIFY 10MG TA10 MG PO; +AMITRIPTYLINE H25 M1 PO; +BASAGLAR K100 UNIT/1 SQ; +BEVESPI AEROS10.7 GM IH; +DOXYCYCLINE 10100 MG PO; +KEPPRA250 MG PO; +LOPRESSOR 550 MG/TAB PO; +LOVAZA1 GM PO; +THEO-DUR 3300 MG/TAB PO
== END ==
LOC: COL.LAB 10:26
DX: Z01.812 Encounter for preprocedural laboratory examination (principal); Z20.822 Contact with and (suspected) exposure to COVID-19

== ENCOUNTER 2020-12-14 11:42 | Emergency (ER) | payer MEDICARE, BC, OTHER ==
[~2020-12-14] VITALS: Ht 170.2 cm; Wt 119.1 kg
[~2020-12-14 11:42] MED LIST changes: -DOXYCYCLINE 10100 MG PO
[2020-12-14 12:17] VITALS: TEMP 97.9
[2020-12-14 14:24] LABS: BASO # 0.1 (0.0-0.2); BASO % 0.9 % (0.0-2.0); EOS # 0.3 (0.0-0.7); EOS % 3.3 % (0-4.0); GRAN # 5.1 (1.4-6.5); HEMATOCRIT 43.7 % (42.0-52.0); HEMOGLOBIN 14.7 g/dl (13.5-18.0); LYMPH # 1.8 (1.2-3.4); LYMPH % 22.4 % (20.0-51.0); MEAN CELL VOLUME 90 fl (80.0-100.0); MEAN CORPUSCULAR HEMOGLOBIN 30 pg (27.0-31.0); MEAN CORPUSCULAR HGB CONC 34 g/dl (33.0-37.0); MEAN PLATELET VOLUME 10.2 fl (7.4-10.4); MONO # 0.7 (0.1-0.6); PLATELET COUNT 189 K/mm3 (130-400); RED BLOOD COUNT 4.86 M/mm3 (4.20-5.60); REDCELL DISTRIBUTION WIDTH-CV 12.5 % (11.5-14.5)
[2020-12-14 14:37] LABS: ALBUMIN 4.1 gm/dL (3.5-5.0); BILIRUBIN,TOTAL 0.4 mg/dL (0.0-1.0); C-REACTIVE PROTEIN 0.8 mg/dL (0.0-0.9); CALCIUM 9.2 mg/dL (8.4-10.2); CREATININE, serum 0.81 (0.66-1.25); POTASSIUM 4.3 mmol/L (3.4-5.0); TOTAL PROTEIN 7.1 gm/dL (6.4-8.2)
[2020-12-14] MEDS ORDERED: NORCO 325 MG-51 TAB PO (15:20)
[2020-12-14] MEDS ORDERED: DOXYCYCLINE 10100 MG PO (15:20)
[2020-12-14 16:20] VITALS: BP 129/72; PULSE 60
== END 2020-12-14 16:25 | disposition home or self-care (01) ==
LOC: COL.ER 11:42
PROVIDERS: Family Medicine
DX: L03.221 Cellulitis of neck (principal); I25.10 Atherosclerotic heart disease of native coronary artery without angina pectoris; I10 Essential (primary) hypertension; Z79.82 Long term (current) use of aspirin; Z79.899 Other long term (current) drug therapy
CPT/HCPCS: J0696; J2270; J2405; Q9967

== ENCOUNTER 2021-01-07 07:14 | Day surgery (SDC) | payer MEDICARE, BC, OTHER ==
[~2021-01-07] VITALS: Ht 170.2 cm; Wt 120.9 kg
[~2021-01-07 07:14] MED LIST changes: +DOXYCYCLINE 10100 MG PO
[2021-01-07 08:23] VITALS: BP 100/72; PULSE 54; TEMP 97.4
[2021-01-07 09:45] VITALS: BP 91/74; PULSE 60; TEMP 97.6
[2021-01-07 10:00] VITALS: BP 102/65; PULSE 62
--- NOTE | 2021-01-07 10:00 | NUR ---
Pt sitting up in chair. Alert and oriented. Tolerating food an drink well. will continue to monitor.
[2021-01-07 10:15] VITALS: BP 95/59; PULSE 63
--- NOTE | 2021-01-07 10:15 | NUR ---
Patient sitting in chair. Alert and and oriented. Denies any discomfort. Blood pressure 95/59, consistent with preop vital signs and patient reports as normal. Patient is not experiencing any symptoms of hypotentsion. D/C IV with no complicstions. Waiting for to speak with patient.
--- NOTE | 2021-01-07 10:40 | NUR ---
Dr. rodriguez to speak with patient.
--- NOTE | 2021-01-07 10:45 | NUR ---
Reviewed discharge instructions, patient and verbalized understanding. Instructed to dress and open door when ready for transportation.
--- NOTE | 2021-01-07 10:50 | NUR ---
Patient transfered via wheelchair to personal vehicle accomplanied by to drive home.
--- NOTE | 2021-01-07 12:51 | NUR ---
Pt returned to bay 2 via cart. Alert and oriented. Postop vitals started. Tea and cracker provided. Will continue to monitor.
== END 2021-01-07 10:50 | disposition home or self-care (01) ==
LOC: SDCO 07:14
DX: Z12.11 Encounter for screening for malignant neoplasm of colon (principal); Z80.0 Family history of malignant neoplasm of digestive organs; K64.0 First degree hemorrhoids; K21.9 Gastro-esophageal reflux disease without esophagitis; E11.9 Type 2 diabetes mellitus without complications; I25.10 Atherosclerotic heart disease of native coronary artery without angina pectoris; I10 Essential (primary) hypertension; J98.4 Other disorders of lung; Z20.822 Contact with and (suspected) exposure to COVID-19; E78.5 Hyperlipidemia, unspecified; G47.33 Obstructive sleep apnea (adult) (pediatric); F41.9 Anxiety disorder, unspecified; F43.10 Post-traumatic stress disorder, unspecified; G25.0 Essential tremor; Z95.5 Presence of coronary angioplasty implant and graft; Z79.02 Long term (current) use of antithrombotics/antiplatelets; Z85.828 Personal history of other malignant neoplasm of skin; Z79.82 Long term (current) use of aspirin
CPT/HCPCS: J2405; J7120